=== PATIENT | male | born 1995 | race Caucasian/White ===

== ENCOUNTER 2020-01-04 00:41 | Emergency (ER) | payer MEDICAID ==
[~2020-01-04] VITALS: Ht 170.2 cm; Wt 150.0 kg
[2020-01-04] MEDS ORDERED: ONDANSETRON 4MG ODT PO ONE (01:45)
[2020-01-04] MEDS ORDERED: IBUPROFEN 600MG TABLET PO ONE (01:45)
[2020-01-04 02:05] VITALS: BP 133/68
== END 2020-01-04 02:05 | disposition home or self-care (01) ==
LOC: ER 01:04
DX: U07.1 COVID-19 (principal); J02.9 Acute pharyngitis, unspecified
CPT/HCPCS: 87635; 93005; 99284; Q0162